=== PATIENT | male | born 1960 | race Two or more races ===

== ENCOUNTER → 2018-12-16 10:38 | Outpatient (BNV) | payer MEDICAID, SELFPAY ==
--- NOTE | 2018-12-16 10:39 | PT.ODAYNRPT ---
PT Outpatient Daily Note Date of Service: December 15, 2018 OP Daily Note Pediatric or Adult Patient: Adult PT >13 Visit Reasons: Amb Documentation Outpatient Physical Therapy Treatment Date: 12/15/18 Subjective: no new complaints Objective: pls see FS Assessment: patient were given strengthening ex on his BUE, gentle passive stretching. Patient was complaining of neck pain as well. He was able to tolerate all the mgt given. Plan: to continue POC toward goals. Pain Present Currently: Yes Length of Time (minutes) of Treatment: 30 Minutes Office Procedures PT Treatments PT Date of Service: 12/15/18 Therapeutic Exercise 30 minutes: Yes

== ENCOUNTER 2024-08-09 11:55 | Day surgery (SDC) | payer MEDICARE, MEDICAID, SELFPAY ==
[2024-08-08 12:12] VITALS: BMI 32.3
[2024-08-09] VITALS (10 sets, daily range): BP systolic 129–152; BP diastolic 66–82; PULSE 67–85; RESP 12–19; TEMP 36.4–37.2; O2SAT 93–100; BMI 33.9
[2024-08-09] MEDS: RINGERS LACTATED 1000 ML 1,000 ML 100 ML IV (13:26)
[2024-08-09] MEDS: fentaNYL CIT INJ 50 mCg/ML AMP 2ML (ASD USE ONLY) IV (13:28)
[2024-08-09] MEDS: MIDAZOLAM INJ 1 MG/ML VIAL 2 ML (ASD USE ONLY) 2 MG IV (13:29)
--- NOTE | 2024-08-09 14:12 | SUR.PHASEII ---
DISCHARGED INSTRUCTIONS CALLED TO [facility] AT [phone] REQUESTED. REQUESTED NO TO GIVE ANY INFORATION TO THE FRIEND WHO WILL BE PICKING PT UP. ALSO REQUESTED FOR D/C PACKET PRINTED OUT IN [place].
== END 2024-08-09 14:33 | disposition home or self-care (01) ==
PROVIDERS: PCP Physician Assistant; Referring Provider Surgery; Visit Provider Surgery
PROC: 0DBE8ZX Excision of Large Intestine, Via Natural or Artificial Opening Endoscopic, Diagnostic (ICD-10-PCS; CPT 45380; principal; 2024-08-09 13:45)
DX: Z12.11 Encounter for screening for malignant neoplasm of colon (principal)
CPT/HCPCS: G0121; A4649; J2250; J3010; J7120